=== PATIENT | female | born 1985 | race African-American/Black ===

== ENCOUNTER → 2016-09-27 | Day surgery (SDC) | payer MEDICAID ==
[~2016-09-27] MED LIST: BUPIVACAINE/EPINEPHRINE 0.5% PF 10 ML VIAL ONE; KETOROLAC TROMETHAMINE 30 MG/ML (IVP) VIAL IV PUSH ONE; LACTATED RINGER'S 1000 ML INJ 1,000 ML ONE; LIDOCAINE 1%/EPINEPHrine 1:100,000 SOLN 20 ML VIAL ONE; MIDAZOLAM HCL 2 MG/2 ML VIAL ONE; ONDANSETRON HCL 4 MG/2 ML VIAL IV PUSH ONE; PROPOFOL 200 MG/20 ML AMP IV ONE; Z.0.BCPILL; ceFAZolin INJ 1,000 MG VIAL ONE
--- NOTE | 2016-09-27 22:03 | MP ---
cc: JAMEL VARELA DATE OF SURGERY: 09/27/2016 PREOPERATIVE DIAGNOSIS: Right ankle retained, failed syndesmotic screw. POSTOPERATIVE DIAGNOSIS Right ankle retained, failed syndesmotic screw. SURGEON Dr. Haley Varela. EQUIPMENT OPERATOR/LABORER/SUPERVISOR: JUMANA Clark The surgical procedure was assisted by my Advanced Registered Nurse Practitioner. My FORESTRY SCIENTIST presence was necessary throughout this case for the manipulation and positioning of the surgical extremity. My FORESTRY SCIENTIST was assisting me throughout the duration of this procedure. The skill set of an Advance Registered Nurse Practitioner was medically necessary to complete this procedure. During the surgical case, the surgical supplies sterilizer was working at the back table and the Advance Registered Nurse Practitioner was directly assisting me. PROCEDURE: Right ankle, planned/staged removal of implant deep, syndesmotic screw. ESTIMATED BLOOD LOSS: Minimal ANESTHESIA: General anesthesia. JUSTIFICATION FOR PROCEDURE: The patient is a 30-year-old female who had an ORIF of her ankle and placed in a syndesmotic screw. The patient was noncompliant and weight-bear on the leg and fractured the syndesmotic screw. It was decided after extensive consultation that the patient wanted to remove the lateral screw but keep the screw that was buried within the tibia, so as not to need significant extra procedures such as tunneling into the tibial bone to retrieve the screw. The patient understood the risks and benefits of surgical management. DESCRIPTION OF PROCEDURE: The patient was brought back to the operative theater. General anesthesia was administered. The right lower extremity was prepped and draped in the usual sterile fashion. We gave injection of 1% lidocaine over the previous incision site. We used fluoroscopic imaging to localize our incision. We dissected bluntly and then using the hemostat through the deep scar tissue and then the deep fascial layer to expose the head of the screw. The screw was loose. We removed the screw uneventfully. We inspected the screw and found that it was fractured which was consistent with the x-rays. The screw itself did not seem to have any overt signs of manufacturing defect. It took fluoroscopic imaging of the ankle. This verified removal of the screw. We then stressed the mortise in external rotation and abduction and did not find any specific instability about the mortise. There was good healing of the fracture. The wound was irrigated and closed with 2-0 Vicryl followed by 3-0 nylon. The leg was dressed. POSTOPERATIVE PLAN The patient will start on partial weightbearing then advance to full weightbearing. MD ED Broderick/FRAN /3:02 PM /9:58 PM
== END | disposition home or self-care (01) ==
LOC: ESDC 12:24
PROVIDERS: ATTEND Orthopaedic Surgery
DX: T84.196A Other mechanical complication of internal fixation device of bone of right lower leg, initial encounter (principal); Z91.19 Patient's noncompliance with other medical treatment and regimen
CPT/HCPCS: 01480; 20680; 73600; 76000; J0690; J1885; J2250; J2405; J3010; J7120